=== PATIENT | female | born 2000 | race Hispanic/Latino ===

== ENCOUNTER 2022-09-12 18:04 | Inpatient (IN) | payer OTHER ==
[2022-09-12 21:19] LABS: #Eosinphils 0.1 10x3/uL (0.0-0.5); #Monocytes 0.5 10x3/uL (0.0-1.1); #Neutrophils 5.8 10x3/uL (1.5-8.4); %Basophils 0.2 % (0.0-2.0); %Eosinophils 1.1 % (0.0-6.0); %Lymphocytes 22.7 % (18.0-47.0); %Monocytes 6.3 % (0.0-10.0); %Neutrophils 69.1 % (40.0-75.0); Hemoglobin 11.9 g/dL (12.0-15.5); Mean Corpuscular HGB CONC 35.3 g/dL (32.0-36.0); Mean Corpuscular Hemoglobin 29.5 pg (27.0-33.0); Mean Corpuscular Volume 83.4 fl (81.6-98.3); Mean Platelet Volume 10.1 fl (7.4-10.4); Platelet Count 267 10x3/uL (150-450); RBC Distribution Width 13.2 % (11.5-14.5); Red Blood Cell (RBC) Count 4.04 10x6/uL (3.90-5.03); White Blood Cell (WBC) Count 8.4 10x3/uL (3.5-10.5)
[2022-09-12 21:33] LABS: Albumin 3.8 g/dL (3.5-5.0); Anion Gap 15 mmol/L (10-20); BUN (Urea Nitrogen) 4 mg/dL (7.0-18.7); Bilirubin, Total 0.4 mg/dL (0.2-1.2); Calc. Creatinine Clearance 0 mL/min (70-130); Carbon Dioxide 22 mmol/L (22-29); Chloride 105 mmol/L (98-107); Estimated GFR 130; Glucose 204 mg/dL (70-105); Potassium 3.1 mmol/L (3.5-5.1); Protein, Total 7.4 g/dL (6.0-8.3); Sodium 139 mmol/L (136-145)
[2022-09-12 21:34] LABS: ALT (SGPT) 17 U/L (8-55); AST (SGOT) 13 U/L (5-34); Alkaline Phosphatase 71 U/L (40-110); Globulin 3.6 g/dL (2.4-3.5)
[2022-09-12] MEDS ORDERED: Dextrose 5% in Water 1,000 ML IV PRN (21:40)
[2022-09-12] MEDS ORDERED: Dextrose 50% Abboject 50 ML SYRINGE SLOW IVP PRN (21:40)
[2022-09-12] MEDS ORDERED: HumaLOG 300 UNITS/3 ML VIAL SC PRN (21:43)
[2022-09-12] MEDS ORDERED: Acetaminophen 325 MG TAB PO PRN (21:43)
[2022-09-12] MEDS ORDERED: Ondansetron ODT 4 MG TAB PO PRN (21:43)
[2022-09-12] MEDS ORDERED: Potassium Chloride 20 MEQ TAB PO SCH (22:00)
[2022-09-12] MEDS ORDERED: Lantus 1000 UNITS/10 ML VIAL SC SCH (22:15)
[2022-09-12 22:21] VITALS: BMI 37.5
[2022-09-12 22:23] LABS: Magnesium 1.4 mg/dL (1.6-2.6)
[2022-09-12] MEDS: HumaLOG 300 UNITS/3 ML VIAL SC PRN (23:13)
[2022-09-13 04:09] LABS: Anion Gap 13 mmol/L (10-20); BUN (Urea Nitrogen) Less than 4 mg/dL (7.0-18.7); Calc. Creatinine Clearance 234 mL/min (70-130); Calcium 8.6 mg/dL (7.8-10.44); Carbon Dioxide 24 mmol/L (22-29); Chloride 106 mmol/L (98-107); Estimated GFR 134; Glucose 163 mg/dL (70-105); Magnesium 1.3 mg/dL (1.6-2.6); Sodium 140 mmol/L (136-145)
[2022-09-13] MEDS: HumaLOG 300 UNITS/3 ML VIAL SC PRN ×3 (06:34→21:28)
[2022-09-13] MEDS ORDERED: HumaLOG 300 UNITS/3 ML VIAL SC SCH ×3 (08:00→17:00)
[2022-09-13] MEDS ORDERED: Magnesium Oxide 400 MG TAB PO SCH (09:00)
[2022-09-13 09:23] LABS: Phosphorus 3.7 mg/dL (2.3-4.7)
[2022-09-13] MEDS: Magnesium Oxide 400 MG TAB PO SCH ×2 (10:15→21:26)
[2022-09-13] MEDS: Potassium Chloride 20 MEQ TAB PO SCH ×2 (10:16→21:25)
[2022-09-13] MEDS ORDERED: metFORMIN 500 MG TAB PO SCH (18:00)
[2022-09-13] MEDS ORDERED: Lantus 1000 UNITS/10 ML VIAL SC SCH ×3 (21:00)
[2022-09-14 04:19] LABS: Anion Gap 13 mmol/L (10-20); BUN (Urea Nitrogen) 5 mg/dL (7.0-18.7); Calc. Creatinine Clearance 209 mL/min (70-130); Calcium 9.6 mg/dL (7.8-10.44); Carbon Dioxide 24 mmol/L (22-29); Chloride 105 mmol/L (98-107); Estimated GFR 130; Glucose 167 mg/dL (70-105); Magnesium 1.5 mg/dL (1.6-2.6); Potassium 3.7 mmol/L (3.5-5.1); Sodium 138 mmol/L (136-145)
[2022-09-14] MEDS ORDERED: metFORMIN 500 MG TAB PO SCH (08:00)
[2022-09-14 08:08] VITALS: BP 115/71; TEMP 99.2
[2022-09-14] MEDS ORDERED: Prenatal Vitamin 1 TAB PO SCH (09:00)
[2022-09-14] MEDS ORDERED: Magnesium Oxide 400 MG TAB PO SCH (09:00)
[2022-09-14] MEDS ORDERED: Potassium Chloride 20 MEQ TAB PO SCH (09:00)
[2022-09-14] MEDS ORDERED: PHOS-NAK 1 PKT PACK PO SCH (09:00)
[2022-09-14] MEDS ORDERED: HumaLOG 300 UNITS/3 ML VIAL SC SCH (12:00)
[2022-09-14] MEDS ORDERED: Lantus 1000 UNITS/10 ML VIAL SC SCH (21:00)
== END 2022-09-14 11:00 | disposition home or self-care (01) | DRG 833 ==
LOC: CSHERS 18:04 → CSHPED 21:48
PROVIDERS: ADMIT Family Medicine; ATTEND Family Medicine
DX: O24.111 Pre-existing type 2 diabetes mellitus, in pregnancy, first trimester (principal); Z3A.01 Less than 8 weeks gestation of pregnancy; Z79.84 Long term (current) use of oral hypoglycemic drugs; F32.A Depression, unspecified; O99.341 Other mental disorders complicating pregnancy, first trimester; O34.211 Maternal care for low transverse scar from previous cesarean delivery; O99.281 Endocrine, nutritional and metabolic diseases complicating pregnancy, first trimester; E87.6 Hypokalemia; E83.42 Hypomagnesemia; E83.39 Other disorders of phosphorus metabolism; Z87.440 Personal history of urinary (tract) infections; E11.65 Type 2 diabetes mellitus with hyperglycemia
CPT/HCPCS: 36415; 36416; 80048; 80053; 83735; 84100; 85025; 99285; J1815; Q0162

== ENCOUNTER 2023-04-01 23:17 | Day surgery (SDC) | payer OTHER ==
[2023-04-01] MEDS ORDERED: hydrALAZINE 20 MG/ML VIAL SLOW IVP PRN (23:58)
[2023-04-02] MEDS ORDERED: Acetaminophen 500 MG TAB PO SCH (02:15)
[2023-04-02] MEDS ORDERED: Sodium Chloride 0.9% 1,000 ML IV SCH (02:15)
[2023-04-02 02:30] LABS: Bilirubin Neg (Negative); Blood, Urine 10 (Negative); Clarity Slightly Cloudy (Clear); Glucose, Urine (Dipstick) >=1000 mg/dL (Negative); Ketone, Urine Negative (Negative); Leukocyte 25 (Negative); Nitrite Negative (Negative); Protein, Urine (Dipstick) 30 mg/dl (Neg-Trace); Specific Gravity, Urine 1.015 (1.005-1.030); Urobilinogen Normal mg/dL (Less than 2)
[2023-04-02 02:44] LABS: CAUTI Indications for Culture Pregnancy; RBC/HPF 0-3 HPF (0-3); WBC/HPF 21-50 HPF (0-3)
[2023-04-02 02:45] LABS: Bacteria/HPF 4+ HPF (None Seen)
[2023-04-02 02:46] LABS: Urine Culture Reflex Yes Yes
[2023-04-02] MEDS ORDERED: cefTRIAXone\\ROCEPHIN 1 GM in Sodium Chloride 0.9% 100 ML IVPB SCH (03:30)
[2023-04-02 03:35] LABS: #Eosinphils 0.1 10x3/uL (0.0-0.5); #Neutrophils 11.7 10x3/uL (1.5-8.4); %Basophils 0.1 % (0.0-2.0); %Eosinophils 0.6 % (0.0-6.0); %Lymphocytes 11.8 % (18.0-47.0); %Monocytes 6.5 % (0.0-10.0); %Neutrophils 80.6 % (40.0-75.0); Hematocrit 36.7 % (34.9-44.5); Hemoglobin 12.4 g/dL (12.0-15.5); Mean Corpuscular HGB CONC 33.8 g/dL (32.0-36.0); Mean Corpuscular Hemoglobin 28.3 pg (27.0-33.0); Mean Corpuscular Volume 83.8 fl (81.6-98.3); Mean Platelet Volume 12.7 fl (7.4-10.4); Platelet Count 208 10x3/uL (150-450); RBC Distribution Width 12.7 % (11.5-14.5); Red Blood Cell (RBC) Count 4.38 10x6/uL (3.90-5.03); White Blood Cell (WBC) Count 14.5 10x3/uL (3.5-10.5)
[2023-04-02 05:01] LABS: ALT (SGPT) 7 U/L (8-55); AST (SGOT) 12 U/L (5-34); Albumin 3.5 g/dL (3.5-5.0); Alkaline Phosphatase 140 U/L (40-110); Anion Gap 17 mmol/L (10-20); BUN (Urea Nitrogen) 10 mg/dL (7.0-18.7); Bilirubin, Total 0.3 mg/dL (0.2-1.2); Calc. Creatinine Clearance 0 mL/min (70-130); Calcium 8.8 mg/dL (7.8-10.44); Carbon Dioxide 16 mmol/L (22-29); Chloride 107 mmol/L (98-107); Estimated GFR 126; Globulin 3.6 g/dL (2.4-3.5); Glucose 103 mg/dL (70-105); Potassium 4.3 mmol/L (3.5-5.1); Protein, Total 7.1 g/dL (6.0-8.3); Sodium 136 mmol/L (136-145)
== END 2023-04-02 07:15 | disposition home or self-care (01) ==
LOC: CSHLD/OP 23:17
PROVIDERS: ATTEND Family Medicine
DX: O99.891 Other specified diseases and conditions complicating pregnancy (principal); R10.9 Unspecified abdominal pain; R00.0 Tachycardia, unspecified; O34.211 Maternal care for low transverse scar from previous cesarean delivery; O24.113 Pre-existing type 2 diabetes mellitus, in pregnancy, third trimester; O99.213 Obesity complicating pregnancy, third trimester; E66.9 Obesity, unspecified; O99.283 Endocrine, nutritional and metabolic diseases complicating pregnancy, third trimester; E78.5 Hyperlipidemia, unspecified; Z79.899 Other long term (current) drug therapy; Z79.84 Long term (current) use of oral hypoglycemic drugs; Z79.4 Long term (current) use of insulin; Z3A.36 36 weeks gestation of pregnancy
CPT/HCPCS: 80053; 81001; 85025; 87077; 87086; 87186; 96360; 96361; 99283; J0696; J3490

== ENCOUNTER 2023-04-12 10:06 | Inpatient (IN) | payer OTHER ==
[2023-04-11 11:53] LABS: Hematocrit 36.1 % (34.9-44.5); Hemoglobin 12.2 g/dL (12.0-15.5); Platelet Count 251 10x3/uL (150-450)
[2023-04-11 12:30] LABS: HBSAg Index 0.18 S/CO (0-0.99); Hep B Surf Ag Non-Reactive S/CO (NonReactive); Syphilis Antibody Nonreactive (Nonreactive); Syphilis Antibody Index 0.02 S/CO (<1.00 Non-Reactive)
[2023-04-12] MEDS ORDERED: Sodium Chloride 0.9% 100 ML ONE (10:25)
[2023-04-12] MEDS ORDERED: Famotidine/PF 20 mg/2ml Vial ONE (10:25)
[2023-04-12] MEDS ORDERED: CEFAZOLIN 1 GM VIAL ONE (10:25)
[2023-04-12 10:58] VITALS: BMI 44.9
[2023-04-12] MEDS ORDERED: Meperidine HCl/PF 25 MG/ML VIAL SLOW IVP PRN (11:01)
[2023-04-12] MEDS ORDERED: diphenhydrAMINE 50 MG/ML VIAL IVP PRN (11:01)
[2023-04-12] MEDS ORDERED: Fentanyl 50 MCG/1 ML VIAL SLOW IVP PRN (11:01)
[2023-04-12] MEDS ORDERED: Naloxone HCl 0.4 mg/ml Vial IVP PRN ×2 (11:01)
[2023-04-12] MEDS ORDERED: Ondansetron HCl/PF 4 MG/2 ML Vial IVP PRN (11:01)
[2023-04-12] MEDS ORDERED: Ondansetron PF 4 MG/2 ML Vial IVP PRN ×3 (11:01→15:48)
[2023-04-12] MEDS ORDERED: Naloxone HCl 0.4 mg/ml Vial IV PRN (11:01)
[2023-04-12] MEDS ORDERED: Promethazine HCl 25 MG SUPP PR PRN (11:01)
[2023-04-12] MEDS ORDERED: L&D-HYDROmorphone 0.5 MG/0.5 ML SYRINGE SLOW IVP PRN (11:01)
[2023-04-12] MEDS ORDERED: Promethazine HCl 25 MG/ML VIAL IM PRN ×2 (11:01→11:09)
[2023-04-12] MEDS ORDERED: Moisturizing Cream (Eucerin) 113 GM JAR TOP PRN (11:01)
[2023-04-12] MEDS ORDERED: Ondansetron PF 4 MG/2 ML Vial ONE (11:07)
[2023-04-12] MEDS ORDERED: Dexamethasone 4 mg/ml Vial ONE (11:07)
[2023-04-12] MEDS ORDERED: Oxytocin 10 UNITS/ML VIAL ONE ×2 (11:07→13:08)
[2023-04-12] MEDS ORDERED: fentaNYL 50 mcg/mL 1 mL Vial ONE (11:07)
[2023-04-12] MEDS ORDERED: Morphine PF 10 MG/10 ML VIAL ONE (11:07)
[2023-04-12] MEDS ORDERED: Famotidine/PF 20 mg/2ml Vial SLOW IVP PRN (11:09)
[2023-04-12] MEDS ORDERED: Misoprostol 200 MCG TAB PR PRN ×2 (11:09→15:48)
[2023-04-12] MEDS ORDERED: Bicitra 30 ML UDCUP PO PRN (11:09)
[2023-04-12] MEDS ORDERED: Methylergonovine 0.2 MG/ML VIAL IM PRN ×2 (11:09→15:48)
[2023-04-12] MEDS ORDERED: hydrALAZINE 20 MG/ML VIAL SLOW IVP PRN ×2 (11:09→15:48)
[2023-04-12] MEDS ORDERED: Tranexamic Acid 1,000 MG/10 ML VIAL IVP PRN (11:09)
[2023-04-12] MEDS ORDERED: Carboprost 250 MCG/ML AMP IM PRN (11:09)
[2023-04-12] MEDS ORDERED: CEFAZOLIN 2 GM in Sodium Chloride 0.9% 100 ML IVPB SCH (11:15)
[2023-04-12] MEDS ORDERED: Lactated Ringer's 1,000 ML IV SCH (11:15)
[2023-04-12] MEDS ORDERED: Ketorolac Tromethamine 30 MG/ML VIAL IVP SCH (11:15)
[2023-04-12] MEDS ORDERED: NS w/ Oxytocin 30 units 500 ML IV SCH ×2 (11:15→15:48)
[2023-04-12] MEDS ORDERED: Communication Order-Pharmacy FS SCH (11:15)
[2023-04-12] MEDS ORDERED: Methylergonovine 0.2 MG/ML VIAL ONE (12:52)
[2023-04-12 13:05] LABS: RapidComm Collect By OR NURSE
[2023-04-12] MEDS ORDERED: Promethazine HCl 25 MG/ML VIAL ONE (13:13)
[2023-04-12] MEDS ORDERED: Glucagon 1 MG/ML KIT IM PRN (15:48)
[2023-04-12] MEDS ORDERED: Simethicone Chewable 80 MG TAB PO PRN (15:48)
[2023-04-12] MEDS ORDERED: Bisacodyl 10 MG SUPP PR PRN (15:48)
[2023-04-12] MEDS ORDERED: Dextrose 5% in Water 1,000 ML IV PRN (15:48)
[2023-04-12] MEDS ORDERED: Lanolin Ointment 7 GM TUBE TOP PRN (15:48)
[2023-04-12] MEDS ORDERED: Dextrose 50% Abboject 50 ML SYRINGE SLOW IVP PRN (15:48)
[2023-04-12] MEDS ORDERED: Boostrix 0.5 ML (Tdap) VIAL (>/=7 yrs of age) IM ONE (15:48)
[2023-04-12] MEDS: Acetaminophen 325 MG TAB PO SCH ×2 (16:45→17:46)
[2023-04-12] MEDS: Ketorolac Tromethamine 30 MG/ML VIAL IVP PRN (17:47)
[2023-04-12 18:42] LABS: D-Dimer Test 1.29 mg/L FEU (0.19-0.50); INR-International Normal Ratio 0.9; PTT 28.9 sec (22.0-33.0); Prothrombin Time 10.1 sec (9.5-12.1)
[2023-04-12] MEDS ORDERED: HumaLOG 300 UNITS/3 ML VIAL SC PRN (19:26)
[2023-04-12] MEDS: Ferrous Sulfate 325 MG TAB PO SCH (21:15)
[2023-04-12] MEDS: Docusate 100 MG CAP PO SCH (21:29)
[2023-04-12] MEDS: Lantus 1000 UNITS/10 ML VIAL SC SCH (21:29)
[2023-04-13] MEDS: Acetaminophen 325 MG TAB PO SCH ×3 (00:17→15:40)
[2023-04-13] MEDS: Ketorolac Tromethamine 30 MG/ML VIAL IVP PRN ×2 (00:17→05:56)
[2023-04-13 04:44] LABS: Hematocrit 27.8 % (34.9-44.5); Hemoglobin 9.5 g/dL (12.0-15.5); Mean Corpuscular HGB CONC 34.2 g/dL (32.0-36.0); Mean Corpuscular Hemoglobin 28.9 pg (27.0-33.0); Mean Corpuscular Volume 84.5 fl (81.6-98.3); Mean Platelet Volume 11.9 fl (7.4-10.4); Platelet Count 212 10x3/uL (150-450); RBC Distribution Width 12.4 % (11.5-14.5); Red Blood Cell (RBC) Count 3.29 10x6/uL (3.90-5.03); White Blood Cell (WBC) Count 13.5 10x3/uL (3.5-10.5)
[2023-04-13] MEDS: Ferrous Sulfate 325 MG TAB PO SCH ×2 (08:07→21:55)
[2023-04-13] MEDS: Prenatal Vitamin 1 TAB PO SCH (08:07)
[2023-04-13] MEDS: Docusate 100 MG CAP PO SCH ×2 (08:07→21:55)
[2023-04-13] MEDS: Ibuprofen 800 MG TAB PO SCH ×2 (13:48→21:55)
[2023-04-13] MEDS: Lantus 1000 UNITS/10 ML VIAL SC SCH (21:55)
[2023-04-14] MEDS: Acetaminophen 325 MG TAB PO SCH ×3 (00:24→15:59)
[2023-04-14 04:26] LABS: Hematocrit 26.7 % (34.9-44.5); Mean Corpuscular HGB CONC 33.7 g/dL (32.0-36.0); Mean Corpuscular Hemoglobin 28.5 pg (27.0-33.0); Mean Corpuscular Volume 84.5 fl (81.6-98.3); Mean Platelet Volume 11.9 fl (7.4-10.4); Platelet Count 227 10x3/uL (150-450); RBC Distribution Width 12.7 % (11.5-14.5); Red Blood Cell (RBC) Count 3.16 10x6/uL (3.90-5.03); White Blood Cell (WBC) Count 8.4 10x3/uL (3.5-10.5)
[2023-04-14] MEDS: Ibuprofen 800 MG TAB PO SCH ×3 (06:11→22:26)
[2023-04-14] MEDS: HumaLOG 300 UNITS/3 ML VIAL SC PRN ×2 (06:45→11:18)
[2023-04-14] MEDS: Docusate 100 MG CAP PO SCH ×2 (08:56→22:26)
[2023-04-14] MEDS: Ferrous Sulfate 325 MG TAB PO SCH ×2 (08:56→22:26)
[2023-04-14] MEDS: Prenatal Vitamin 1 TAB PO SCH (08:56)
[2023-04-14] MEDS ORDERED: metFORMIN 500 MG TAB PO SCH (09:30)
[2023-04-14] MEDS: metFORMIN 500 MG TAB PO SCH (15:59)
[2023-04-14] MEDS ORDERED: Lantus 1000 UNITS/10 ML VIAL SC SCH (21:00)
[2023-04-15] MEDS: Acetaminophen 325 MG TAB PO SCH ×3 (01:29→18:23)
[2023-04-15] MEDS: Ibuprofen 800 MG TAB PO SCH ×3 (06:37→21:39)
[2023-04-15] MEDS: HumaLOG 300 UNITS/3 ML VIAL SC PRN ×2 (06:39→11:45)
[2023-04-15] MEDS: Ferrous Sulfate 325 MG TAB PO SCH ×2 (07:41→21:39)
[2023-04-15] MEDS: metFORMIN 500 MG TAB PO SCH ×2 (07:41→17:08)
[2023-04-15] MEDS: Prenatal Vitamin 1 TAB PO SCH (07:41)
[2023-04-15] MEDS: Docusate 100 MG CAP PO SCH ×2 (07:41→21:39)
[2023-04-15] MEDS ORDERED: Lantus 1000 UNITS/10 ML VIAL SC SCH (21:00)
[2023-04-16] MEDS: Acetaminophen 325 MG TAB PO SCH ×2 (01:11→07:48)
[2023-04-16] MEDS: Ibuprofen 800 MG TAB PO SCH (06:00)
[2023-04-16] MEDS: HumaLOG 300 UNITS/3 ML VIAL SC PRN (06:08)
[2023-04-16] MEDS: Ferrous Sulfate 325 MG TAB PO SCH (07:47)
[2023-04-16] MEDS: metFORMIN 500 MG TAB PO SCH (07:48)
[2023-04-16] MEDS: Prenatal Vitamin 1 TAB PO SCH (07:48)
[2023-04-16] MEDS: Docusate 100 MG CAP PO SCH (07:48)
[2023-04-16 11:22] VITALS: BP 120/70; TEMP 98.3
== END 2023-04-16 12:45 | disposition home or self-care (01) | DRG 786 ==
LOC: CSHLD 10:06 → CSHPP 15:40
PROVIDERS: ADMIT Obstetrics & Gynecology; ATTEND Obstetrics & Gynecology
PROC: 10D00Z1 Extraction of Products of Conception, Low, Open Approach (ICD-10-PCS; principal; 2023-04-12)
PROC: 4A033R1 Measurement of Arterial Saturation, Peripheral, Percutaneous Approach (ICD-10-PCS; 2023-04-12)
DX: O34.211 Maternal care for low transverse scar from previous cesarean delivery (principal); O24.12 Pre-existing type 2 diabetes mellitus, in childbirth; A54.9 Gonococcal infection, unspecified; O98.22 Gonorrhea complicating childbirth; O72.2 Delayed and secondary postpartum hemorrhage; O32.1XX0 Maternal care for breech presentation, not applicable or unspecified; O99.214 Obesity complicating childbirth; E66.9 Obesity, unspecified; O99.02 Anemia complicating childbirth; O69.81X0 Labor and delivery complicated by cord around neck, without compression, not applicable or unspecified; O99.891 Other specified diseases and conditions complicating pregnancy; N73.6 Female pelvic peritoneal adhesions (postinfective); Z3A.37 37 weeks gestation of pregnancy; Z37.0 Single live birth; Z79.4 Long term (current) use of insulin; Z79.84 Long term (current) use of oral hypoglycemic drugs; D64.9 Anemia, unspecified; E78.5 Hyperlipidemia, unspecified; O99.284 Endocrine, nutritional and metabolic diseases complicating childbirth; E11.9 Type 2 diabetes mellitus without complications
CPT/HCPCS: 36415; 36416; 51702; 82805; 85014; 85018; 85027; 85049; 85300; 85362; 85379; 85384; 85610; 85730; 86780; 86850; 86900; 86901; 87340; J1100; J1815; J1885; J2210; J2274; J2405; J2550; J2590; J3010; J3490; S0028

== ENCOUNTER 2024-02-11 23:52 | Emergency (ER) | payer OTHER ==
[2024-02-12] MEDS ORDERED: Fluorescein Opthalmic Strip ONE (00:21)
[2024-02-12] MEDS ORDERED: Tetracaine 0.5% PF 4 ML BOT ONE (00:21)
[2024-02-12] MEDS ORDERED: Erythromycin Base 0.5% Oint 1 GM TUBE ONE (00:38)
== END 2024-02-12 00:42 | disposition home or self-care (01) ==
LOC: CSHERS 23:52
DX: H10.9 Unspecified conjunctivitis (principal); E11.9 Type 2 diabetes mellitus without complications; Z79.4 Long term (current) use of insulin
CPT/HCPCS: 99283

== ENCOUNTER 2025-07-15 11:15 | Inpatient (IN) | payer OTHER ==
[2025-07-15 11:44] VITALS: BMI 46.6
[2025-07-15] MEDS ORDERED: hydrALAZINE 20 MG/ML VIAL SLOW IVP PRN (11:58)
[2025-07-15 13:08] LABS: #Basophils 0.03 10x3/uL (0.0-0.2); #Eosinophils 0.12 10x3/uL (0.0-0.5); #Monocytes 0.60 10x3/uL (0.0-1.1); #Neutrophils 6.37 10x3/uL (1.5-8.4); %Basophils 0.3 % (0.0-2.0); %Eosinophils 1.4 % (0.0-6.0); %Lymphocytes 16.0 % (18.0-47.0); %Monocytes 6.9 % (0.0-10.0); %Neutrophils 73.2 % (40.0-75.0); Hematocrit 26.9 % (34.9-44.5); Hemoglobin 9.4 g/dL (12.0-15.5); Mean Corpuscular Hemoglobin 29.7 pg (27.0-33.0); Mean Corpuscular Volume 84.9 fL (81.6-98.3); Platelet Count 258 10x3/uL (150-450); Red Blood Cell (RBC) Count 3.17 10x6/uL (3.90-5.03); White Blood Cell (WBC) Count 8.70 10x3/uL (3.5-10.5)
[2025-07-15 13:19] LABS: Protein, Urine Random Quant 1069.0 mg/dL (1-14)
[2025-07-15 13:36] LABS: ALT (SGPT) 7 U/L (Less than 34); AST (SGOT) 12 U/L (11-34); Albumin 2.2 g/dL (3.1-4.5); Alkaline Phosphatase 66 U/L (40-110); Anion Gap 11 mmol/L (10-20); BUN (Urea Nitrogen) 12 mg/dL (7.0-18.7); Bilirubin, Total 0.1 mg/dL (0.3-1.2); Calc. Creatinine Clearance 192 mL/min (70-130); Calcium 8.6 mg/dL (7.8-10.44); Carbon Dioxide 21 mmol/L (22-29); Chloride 109 mmol/L (98-107); Globulin 3.9 g/dL (2.4-3.5); Glucose 238 mg/dL (70-105); Potassium 4.0 mmol/L (3.5-5.1); Sodium 137 mmol/L (136-145)
[2025-07-15] MEDS ORDERED: Glucagon 1 MG/ML KIT IM PRN (15:59)
[2025-07-15] MEDS ORDERED: Dextrose 50% Abboject 50 ML SYRINGE SLOW IVP PRN (15:59)
[2025-07-15 19:39] LABS: Glucose POC Confirmation 318 mg/dL (70-105)
[2025-07-15] MEDS ORDERED: Calcium Gluc 4.6 MEQ/10 ML (100 MG/ML) SLOW IVP PRN (19:47)
[2025-07-15] MEDS: NIFEdipine 10 MG CAP PO PRN ×2 (20:11→20:33)
[2025-07-15] MEDS: Lantus 1000 UNITS/10 ML VIAL SC SCH (20:58)
[2025-07-15 21:41] LABS: ALT (SGPT) 7 U/L (Less than 34); AST (SGOT) 13 U/L (11-34); Albumin 2.1 g/dL (3.1-4.5); Alkaline Phosphatase 68 U/L (40-110); Anion Gap 12 mmol/L (10-20); BUN (Urea Nitrogen) 13 mg/dL (7.0-18.7); Bilirubin, Total Less than 0.1 mg/dL (0.3-1.2); Calc. Creatinine Clearance 218 mL/min (70-130); Calcium 8.3 mg/dL (7.8-10.44); Carbon Dioxide 19 mmol/L (22-29); Chloride 106 mmol/L (98-107); Globulin 3.8 g/dL (2.4-3.5); Glucose 317 mg/dL (70-105); Potassium 4.0 mmol/L (3.5-5.1); Sodium 133 mmol/L (136-145)
[2025-07-16] MEDS: Lantus 1000 UNITS/10 ML VIAL SC SCH (21:16)
[2025-07-18] MEDS: Lantus 1000 UNITS/10 ML VIAL SC SCH (21:02)
[2025-07-19 09:50] LABS: #Basophils Less than 0.03 10x3/uL (0.0-0.2); #Eosinophils 0.13 10x3/uL (0.0-0.5); #Monocytes 0.66 10x3/uL (0.0-1.1); #Neutrophils 5.98 10x3/uL (1.5-8.4); %Basophils 0.1 % (0.0-2.0); %Eosinophils 1.5 % (0.0-6.0); %Lymphocytes 20.2 % (18.0-47.0); %Monocytes 7.7 % (0.0-10.0); %Neutrophils 69.3 % (40.0-75.0); Hematocrit 25.8 % (34.9-44.5); Hemoglobin 8.8 g/dL (12.0-15.5); Mean Corpuscular Hemoglobin 29.3 pg (27.0-33.0); Mean Corpuscular Volume 86.0 fL (81.6-98.3); Platelet Count 245 10x3/uL (150-450); Red Blood Cell (RBC) Count 3.00 10x6/uL (3.90-5.03); White Blood Cell (WBC) Count 8.62 10x3/uL (3.5-10.5)
[2025-07-19 10:13] LABS: ALT (SGPT) 7 U/L (Less than 34); AST (SGOT) 16 U/L (11-34); Albumin 2.0 g/dL (3.1-4.5); Alkaline Phosphatase 63 U/L (40-110); Anion Gap 10 mmol/L (10-20); BUN (Urea Nitrogen) 16 mg/dL (7.0-18.7); Bilirubin, Total 0.1 mg/dL (0.3-1.2); Calc. Creatinine Clearance 228 mL/min (70-130); Calcium 8.5 mg/dL (7.8-10.44); Carbon Dioxide 21 mmol/L (22-29); Chloride 110 mmol/L (98-107); Globulin 3.9 g/dL (2.4-3.5); Glucose 152 mg/dL (70-105); Potassium 3.9 mmol/L (3.5-5.1); Sodium 137 mmol/L (136-145)
[2025-07-19] MEDS: Lantus 1000 UNITS/10 ML VIAL SC SCH (21:08)
[2025-07-20] MEDS: Lantus 1000 UNITS/10 ML VIAL SC SCH (08:26)
[2025-07-20 08:36] VITALS: BP 140/66; TEMP 98.4
== END 2025-07-20 11:15 | disposition home or self-care (01) | DRG 833 ==
LOC: CSHLD/OP 11:15 → CSHLD 14:06 → CSHANTE 07-16 16:25
PROVIDERS: ADMIT Family Medicine; ATTEND Family Medicine
DX: O11.3 Pre-existing hypertension with pre-eclampsia, third trimester (principal); O24.414 Gestational diabetes mellitus in pregnancy, insulin controlled; Z79.899 Other long term (current) drug therapy; Z3A.28 28 weeks gestation of pregnancy
CPT/HCPCS: 36415; 36416; 76815; 76819; 80053; 81003; 82570; 84156; 85025; 99285; J1815; J7030; Q0162